=== PATIENT | female | born 1955 | race Caucasian/White ===

== ENCOUNTER 2023-03-06 07:12 | Observation (INO) ==
--- NOTE | 2023-03-03 15:27 | Anesthesiology Consultation ---
Date of Service March 03, 2023 Assessment & Plan (1) Encounter for pre-operative examination: - check BSG am DOS. - medical clearance 11/05/22: "...moderate risk..." - semaglutide instructions: Patient instructed by PAT RN to stop 7 days prior to surgery. - Outpatient joint assessment: Patient is currently scheduled for inpatient pathway. If re-evaluated and patient/surgeon requests outpatient pathway, patient is not recommended candidate for outpatient joint program from anes thesia standpoint. Chart Review Chart Review: Acceptable Risk for Surgery and Patient NOT seen in Pre Admission Testing History Surgery Operation Date: 03/06/23 11:15 Proposed Procedures p Left Total Hip Arthroplasty Anterior Approach - Elpidio Villagomez MD Height/Weight Height: 5 ft Weight: 97.522 kg Allergies Allergy/AdvReac Type Severity Reaction Status Date / Time latex Allergy Unknown Rash Verified 03/03/23 09:09 Medications Home Medications Medication Instructions Recorded Confirmed Last Taken albuterol sulfate 90 mcg/actuation 2 puff inhalation QID PRN sob 03/03/23 03/03/23 Unknown aerosol inhaler atorvastatin 20 mg tablet 20 mg PO QAM 03/03/23 03/03/23 Unknown cholecalciferol (vitamin D3) 125 125 mcg PO QAM 03/03/23 03/03/23 Unknown mcg (5,000 unit) tablet (Vitamin D3) fluticasone 100 mcg-salmeterol 50 1 inh inhalation BID 03/03/23 03/03/23 Unknown mcg/dose blistr powdr for inhalation ipratropium 0.5 mg-albuterol 3 mg 3 ml inhalation Q8H PRN sob 03/03/23 03/03/23 Unknown (2.5 mg base)/3 mL nebulization soln levetiracetam 750 mg tablet 750 mg PO BID 03/03/23 03/03/23 Unknown (Keppra) levothyroxine 100 mcg tablet 100 mcg PO QAM 03/03/23 03/03/23 Unknown (Synthroid) losartan 100 1 tab PO QAM 03/03/23 03/03/23 Unknown mg-hydrochlorothiazide 25 mg tablet metformin 500 mg tablet 500 mg PO BID 03/03/23 03/03/23 Unknown multivitamin 1 tab PO QAM 03/03/23 03/03/23 Unknown semaglutide 2 mg/dose (8 mg/3 mL) 2 mg subcut WK 03/03/23 03/03/23 Unknown subcutaneous pen injector (Ozempic) sertraline 50 mg tablet 50 mg PO QAM 03/03/23 03/03/23 Unknown Past Medical History Medical History (Updated 03/03/23 @ 15:23 by Saida Ji PA-C) Anxiety and depression Arthritis of spine Asthma controlled w/ daily inhaler use Chronic back pain Diabetes NIDDM Dyslipidemia History of blood transfusion > 35 yrs ago History of brain tumor 2014 History of COVID-2021- no hosp; resolved 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 History of seizure grand mal seizure- 2014- prior to finding tumor- no seizures since surgery HTN (hypertension) Hypothyroidism Past Family History Family History Other No family history of adverse response to anesthesia Past Surgical History Surgical History History of bilateral knee replacement History of hip replacement Hx of brain surgery 2014- tumor removal- [facility] [place] Hx of cardiac catheterization summer 2022-no stents- [facility] [place]- follows w/ [facility] cardio Hx of section Hx of colonoscopy Hx of dilation and curettage x 2 Social History Smoking Status: Never smoker Do You Dip or Chew Tobacco: No Hx Alcohol Use: No Hx Substance Use: No substance use type: does not use Testing Laboratory Results 02/27/23 WBC: 7.8 H/H: 12/ PLATELETS: 352,000 SODIUM: 138 POTASSIUM: 4 CHLORIDE: 102 CO2: 27 BUN: 15 CREATININE: 0.7 GLUCOSE: 96 PT: 12.7 INR: 1 A1c: 5.9% UA: clear, negative Electrocardiogram Date: 10/23/22 NSR, rate 80 bpm Low voltage QRS Chest X-Ray Date: 10/23/22 No acute process. Cardiac Catheterization Date: 08/21/21 Left main: mild diffuse atherosclerosis LAD: mild diffuse atherosclerosis LCx: mild diffuse atherosclerosis RCA: mild diffuse atherosclerosis Mild nonobstructive epicardial CAD Significantly elevated LV end diastolic pressure 23-26 mmHg
--- NOTE | 2023-03-04 16:01 | History & Physical Report ---
Date of Service March 04, 2023 Assessment & Plan (1) Degenerative joint disease of left hip: Plan: Patient will be admitted for elective left total hip replacement overnight stay and then most likely discharge to home with home health using [facility] (2) BMI 40.0-44.9, adult: History of Present Illness Chief Complaint: Patient states Left hip pain Primary Care Provider: Fred Sanford MD Patient is an obese 67-year-old female with a greater than 2-year history of bilateral hip osteoarthritis and hip pain. She had had successful right total hip replacement performed October 2022 and is doing well. She now has increased left hip and groin pain. She has limited standing and walking tolerance and has a cane for all activities of daily living. She has radiographic evidence of advanced arthritis and is admitted for elective hip replacement surgery Allergies Allergy/AdvReac Type Severity Reaction Status Date / Time latex Allergy Unknown Rash Verified 03/03/23 09:09 Home Medications Medication Instructions Recorded Confirmed Type albuterol sulfate 90 mcg/actuation 2 puff inhalation QID PRN sob 03/03/23 03/03/23 History aerosol inhaler atorvastatin 20 mg tablet 20 mg PO QAM 03/03/23 03/03/23 History cholecalciferol (vitamin D3) 125 125 mcg PO QAM 03/03/23 03/03/23 History mcg (5,000 unit) tablet (Vitamin D3) fluticasone 100 mcg-salmeterol 50 1 inh inhalation BID 03/03/23 03/03/23 History mcg/dose blistr powdr for inhalation ipratropium 0.5 mg-albuterol 3 mg 3 ml inhalation Q8H PRN sob 03/03/23 03/03/23 History (2.5 mg base)/3 mL nebulization soln levetiracetam 750 mg tablet 750 mg PO BID 03/03/23 03/03/23 History (Keppra) levothyroxine 100 mcg tablet 100 mcg PO QAM 03/03/23 03/03/23 History (Synthroid) losartan 100 1 tab PO QAM 03/03/23 03/03/23 History mg-hydrochlorothiazide 25 mg tablet metformin 500 mg tablet 500 mg PO BID 03/03/23 03/03/23 History multivitamin 1 tab PO QAM 03/03/23 03/03/23 History semaglutide 2 mg/dose (8 mg/3 mL) 2 mg subcut WK 03/03/23 03/03/23 History subcutaneous pen injector (Ozempic) sertraline 50 mg tablet 50 mg PO QAM 03/03/23 03/03/23 History Past Med/Surg History Medical History History of COVID-19 2021- no hosp; resolved Anxiety and depression Arthritis of spine Chronic back pain Diabetes NIDDM Dyslipidemia HTN (hypertension) Hypothyroidism 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 History of seizure grand mal seizure- 2014- prior to finding tumor- no seizures since surgery History of brain tumor 2014 Asthma controlled w/ daily inhaler use History of blood transfusion > 35 yrs ago Surgical History Hx of cardiac catheterization summer 2022-no stents- [facility] [place]- follows w/ [facility] cardio Hx of brain surgery 2014- tumor removal- [facility] [place] Hx of colonoscopy Hx of section History of hip replacement History of bilateral knee replacement Hx of dilation and curettage x 2 Family History Other No family history of adverse response to anesthesia Social History Smoking Status: Never smoker Second Hand Exposure: Yes (hx - smoked); Do You Dip or Chew Tobacco: No; Tobacco Cessation Education Requested by Patient: No Hx Alcohol Use: No Hx Substance Use: No Preferred Language: Bots[place] Communication Ability: Effective Communication Ability Comment: has mild cognitive deficits Doll Wig Maker Required: No Beliefs That Will Affect Care: None Current Living Situation: Alone Other Information That Helps Us Care for You: No Feels Safe at Home: Yes Safety Concerns: Feels Safe At This Time Assistive Devices: Glasses and Nebulizer Review of Systems Review of Systems: Hip pain Physical Exam Physical Exam: Obese female who appears her stated age. HEENT: NCAT, EOMI, PERRLA Neck: Negative bruits Heart: Regular rate and rhythm no murmurs Lungs: Breath sounds clear and present in all mccray Abdomen: Obese soft nontender bowel sounds positive Extremities: Left hip is 8 mm shorter than the right passive range of motion is 5 to 80 degrees flexion -10 degrees internal rotation all which reproduces groin pain. Right hip shows well-healed scar consistent with previous surgery Neurological and vascular: Intact Results & Data Results & Data Vital Signs (Past 12 Hours) Weight 99 kg BMI 43 Blood pressure 114/72 Pulse 71
[~2023-03-06 07:12] MED LIST: ACETAMINOPHEN 500 MG TAB PO SCH; BUPIVACAINE 0.5 % 5 MG/1 ML PF 10ML VIAL ONE; CeleBREX 200 MG CAP PO SCH; FAMOTIDINE 20 MG TAB PO SCH; GABAPENTIN 300 MG CAP PO SCH; LR 500ML BOLUS, THEN 15ML/HR IV SCH; LR 60ML/HR IV SCH; METOCLOPRAMIDE HCL 10 MG TABLET PO SCH; ROPIV 0.5% 246mg, Ketorolac 30mg, EPINEPHrine 0.5mg in NSS INFIL SCH; TRANEXAMIC ACID 1,000 MG **IV Intra-op IV SCH; TRANEXAMIC ACID 1,000 MG **IV Pre-op IV SCH; ceFAZolin 2000MG 2,000 MG/15 ML SYR IV SCH; dexAMETHasone**PF** 10 MG/ML VIAL IV SCH; traMADol HCL 50 MG TABLET PO SCH
[2023-03-06] MEDS ORDERED: PROPOFOL IV EMULSION 10 MG/ML 20 ML VIAL IV ONE ×2 (07:42→09:26)
[2023-03-06] MEDS ORDERED: LIDOCAINE 2% 2 ML VIAL/AMP(20MG/ML) INFIL ONE (07:42)
[2023-03-06] MEDS ORDERED: MIDAZOLAM HCL 1 MG/ML 2ML VIAL ONE ×2 (07:42)
[2023-03-06] MEDS ORDERED: ORTHO JOINT ANESTHETIC ONE (07:45)
[2023-03-06] MEDS ORDERED: ATROPINE SULFATE 0.1 MG/ML 10ML SYR IV PRN (07:59)
[2023-03-06] MEDS ORDERED: ONDANSETRON INJ 2 MG/ML 2 ML VIAL IV PRN ×2 (07:59→13:04)
[2023-03-06] MEDS ORDERED: fentaNYL citrate PF 100 MCG/2 ML VIAL IV PRN (07:59)
[2023-03-06] MEDS ORDERED: ePHEDrine sulfate 50 MG/ML AMP IV PRN (07:59)
--- NOTE | 2023-03-06 08:25 | History & Physical Bridge Note ---
Date of Service March 06, 2023 History & Physical Bridge Note I have examined the patient, reviewed the History & Physical and in the interval since the performance of the History & Physical I have noted the following changes of clinical significance: no changes noted
[2023-03-06] MEDS ORDERED: PHENYLEPHRINE 100MCG/ML 10ML SYR IV ONE (08:58)
[2023-03-06] MEDS ORDERED: ePHEDrine sulfate 50 MG/5 ML SYR ONE (09:41)
--- NOTE | 2023-03-06 09:43 | Post Operative Brief Note ---
Immediate Post Op Note v1 Date of Surgery March 06, 2023 Pre & Post Diagnosis Operation Date: 03/06/23 10:35 Pre-Op Diagnosis: Degenerative joint disease of left hip Post-Op Diagnosis: Degenerative joint disease of left hip I identified the patient and participated in the time-out.: Yes Procedure Operation Date: 03/06/23 10:35 Actual Procedures p Left Total Hip Arthroplasty - Anterior Approach(Left) - Elpidio Villagomez MD Surgeon Elpidio Villagomez MD Patient Portal Representative Brian Wooten PAGaviotaC Estimated Blood Loss 150 Findings Consistent with Post-Op Diagnosis morbidly obese body habitus with large subcutaneous fat layer and significant degenerative changes of the hip Drains Hemovac Drain
--- NOTE | 2023-03-06 09:53 | Operative Report ---
Post Operative Report Pre & Post Diagnosis Operation Date: 03/06/23 10:35 Pre-Op Diagnosis: Degenerative joint disease of left hip Morbid obesity BMI 43 Post-Op Diagnosis: Degenerative joint disease of left hip same I identified the patient and participated in the time-out.: Yes Procedure Operation Date: 03/06/23 10:35 Actual Procedures p Left Total Hip Arthroplasty - Anterior Approach(Left) - Elpidio Villagomez MD Surgeon Elpidio Villagomez MD Reading Assistant Brian Wooten PA-C Estimated Blood Loss 150 Findings Consistent with Post-Op Diagnosis severe degenerative changes with complete loss of all weightbearing articular cartilage. Patient had a morbidly obese body habitus with a large abdominal pannus and subcutaneous fat layer which had an element of increased difficulty and increased time to the surgical procedure. Specimens Femoral head and bone and cartilage fragments Complications none Description of Procedure following satisfactory spinal anesthesia the patient was supine on the operating table. The left leg was placed in the traction device in the right leg in the well-leg herzog. Positioning was confirmed with fluoroscopy. The hip and leg were prepared with ChloraPrep and draped sterilely. A surgical timeout was performed. An anterior approach was performed in the interval between the sartorius and tensor muscles. There was a large subcutaneous fat layer which bled profusely and slow down the surgical timing. The circumflex femoral vessels were identified and coagulated. An anterior capsulotomy was performed exposing the arthritic femoral neck and head. Fluoroscopy was used to confirm femoral neck resection level which was completed and the arthritic cap was removed. The acetabular self-retaining retractor was placed. Acetabular preparation was completed with excision of labrum and some soft tissues and osteophytes. Reaming was then completed under direct vision and 46 shell was impacted into a healthy bed in a position of 35 to 40 degrees of abduction 25 degrees of anteversion confirmed with fluoroscopy. A dome screw was placed followed by the Oreo Oxinium liner. A small inferior osteophyte was removed. Local anesthetic was placed and the wound was irrigated. The femur was placed in a position of external rotation extension and adduction. Femoral canal was identified and was prepared up to a size 4. A trial reduction with a standard offset neck and a 0 neck length inner dual mobility head was performed. Fluoroscopy showed very good orientation of the components, good fit and fill of the proximal canal, and zoroastrian of leg length and offset at the level of the lesser trochanter. The hip was dislocated. The trial component removed. Local anesthetic was placed. After irrigation the stem head complex of the same size as the final implant was placed the hip was reduced with fluoroscopy showing similar findings. The wound was irrigated with 500 cc of experience irrigation. A Hemovac drain was placed deep. The tensor fascia was closed with a running suture of 0 strata fix. Following irrigation another drain was placed deep in the loose fat layer. The subcutaneous fat was closed with in layers with 0 strata fix running. The most superficial layer with 3 oh strata fix. Dermabond Prineo dressing and a negative pressure wound dressing were applied. The patient was returned to her bed in stable condition. Note: Brian ATWOOD was present and assisted throughout due to the complicated nature of this case. He help with preparation and set up an nurse first assist throughout. He assisted with hemostasis and exposure throughout the procedure. He also closed the fascial subcutaneous and skin layers and applied the postop dressing. I attest to the content of the Intraoperative Record and any orders documented therein. Any exceptions are noted below.
[2023-03-06] MEDS ORDERED: KETOROLAC 30 MG/ML VIAL ONE (10:01)
--- NOTE | 2023-03-06 12:31 | Fluoroscopy Report ---
INTRAOPERATIVE RADIOGRAPH CLINICAL HISTORY: Left hip arthroplasty. Fluoro time: 13 seconds Ka,r: 2.04 mGy FINDINGS: A single spot fluoroscopic view of the left hip is presented. A bipolar left hip arthroplas ty is in near anatomic alignment. A single cortical lag screw transfixes the acetabular cup. There is no evidence of acute fracture on this fluoroscopic view. IMPRESSION: Intraoperative image from a left hip arthroplasty procedure as above. Electronically signed by: Abhishek Peterson M.D. 03/06/2023 12:30 PM
[2023-03-06] MEDS ORDERED: ALBUT/IPRATROP 3MG/0.5MG NEB 3 ML VIAL INH PRN (13:04)
[2023-03-06] MEDS ORDERED: METOCLOPRAMIDE HCL INJ 5 MG/ML 2 ML VIAL IV PRN (13:04)
[2023-03-06] MEDS ORDERED: ALBUTEROL HFA 8 GM INHALER INH PRN (13:04)
[2023-03-06] MEDS ORDERED: MAGNESIUM HYDROXIDE SUSP 30 ML UDC PO PRN (13:04)
[2023-03-06] MEDS ORDERED: bisacodyL 10 MG SUPP PR PRN (13:04)
[2023-03-06] MEDS ORDERED: NALOXONE HCL 0.4 MG/1 ML VIAL/CARP IV PRN (13:04)
[2023-03-06] MEDS ORDERED: PHARMACY GLYCEMIC MGMT CONSULT PRN (13:04)
[2023-03-06] MEDS: SODIUM CHLORIDE 0.9% 1,000 ML IV SCH ×2 (13:17→22:14)
[2023-03-06] MEDS ORDERED: GLUCAGON FOR INJ 1 MG VIAL IM PRN (14:00)
[2023-03-06] MEDS ORDERED: CARBOHYDRATES FOR HYPOGLYCEMIA PO PRN (14:00)
[2023-03-06] MEDS ORDERED: GLUCOSE 40% GEL 15 GM TUBE PO PRN (14:00)
[2023-03-06] MEDS ORDERED: DEXTROSE 50% 50 ML SYRINGE IV PRN (14:00)
[2023-03-06] MEDS ORDERED: GLUCOSE 10 TAB/TUBE PO PRN (14:00)
--- NOTE | 2023-03-06 14:33 | Pharmacy Report ---
Pharmacy Glycemic Short Note 2 - Date of Service March 06, 2023 - Glycemic Short BSG Results (Last 24 hours): 03/06/23 03/06/23 08:28 11:02 POC Glucose 95 112 H OUTPATIENT ANTIDIABETIC REGIMEN: * Metformin 500 mg PO BID * Ozempic SC ?? HbA1c: ___ ASSESSMENT: * 67 y/o F admitted for L total hip arthroplasty. Patient with history of Type 2 diabetes managed on oral Metformin at home. Not clear if she is still on Ozempic. * Will hold oral Metformin and utilize basal/bolus insulins for glycemic control for now. * Patient received IV Dexamethasone 10 mg preop today. Expected BSGs to rise later today due to steroid. * Basal insulin dose scale ordered for dinner based on BSG. * Novolog initiated based on adjusted body wt and stress of 3. * Will add overnight checks. PLAN FOR INPATIENT GLYCEMIC CONTROL: * Hold outpatient oral diabetes medications * Basal insulin * Lantus 0-10 units SQ based on BSG at dinner * Bolus insulin * NovoLog per scale ACHS or Q6hrs while NPO and 0200 check * Goal Range: Low 110 mg/dL - High 140 mg/dL * Correction Factor: 25 mg/dL/unit * Nutritional / Prandial insulin per carb ratio of 1 unit per 8 grams CHO consumed
--- NOTE | 2023-03-06 14:37 | Anesthesiology Progress Note ---
Date of Service March 06, 2023 Anesthesia Post Procedure Vital Signs Vital Signs: Temp Pulse Pulse Pulse Resp BP Pulse Ox 03/06/23 13:49 36.4 C L 68 16 115/70 93 03/06/23 13:24 36.6 C 66 16 114/72 98 03/06/23 13:12 36.5 C 63 16 118/85 95 03/06/23 12:35 66 18 115/75 96 03/06/23 12:25 36.4 C L 70 14 118/67 96 03/06/23 12:15 58 L 18 110/64 94 03/06/23 12:05 65 16 106/70 96 03/06/23 11:55 60 14 116/63 94 03/06/23 11:45 66 18 122/67 96 03/06/23 11:35 64 16 133/56 L 98 03/06/23 11:25 56 L 16 110/61 95 03/06/23 11:15 58 L 14 117/57 L 97 03/06/23 11:05 62 16 104/61 94 03/06/23 10:55 59 L 14 111/52 L 95 03/06/23 10:45 58 L 16 107/57 L 93 03/06/23 10:35 61 14 115/54 L 94 03/06/23 10:25 60 18 100/64 99 03/06/23 10:17 36.1 C L 65 16 106/56 L 98 03/06/23 07:43 36.4 C L 69 69 20 98 03/06/23 07:41 36.4 C L 69 20 123/73 98 O2 Del Method 03/06/23 13:49 Room Air 03/06/23 13:24 Room Air 03/06/23 13:12 Room Air 03/06/23 12:35 Room Air 03/06/23 12:25 Room Air 03/06/23 12:15 Room Air 03/06/23 12:05 Room Air 03/06/23 11:55 Room Air 03/06/23 11:45 Room Air 03/06/23 11:35 Room Air 03/06/23 11:25 Room Air 03/06/23 11:15 Room Air 03/06/23 11:05 Room Air 03/06/23 10:55 Room Air 03/06/23 10:45 Room Air 03/06/23 10:35 Room Air 03/06/23 10:25 Room Air 03/06/23 10:17 Room Air 03/06/23 07:43 Room Air 03/06/23 07:41 Room Air Transfer of Care Handoff Completed per policy Notes Mental Status: alert / awake / arousable and participated in evaluation Patient Amnestic to Procedure: Yes Nausea / Vomiting: adequately controlled Pain: adequately controlled Airway Patency, RR, SpO2: stable & adequate BP & HR: stable & adequate Hydration State: stable & adequate Neuraxial Anesthesia: was administered and sensory block is resolving Anesthetic Complications: no major complications apparent and Pt Satisfied with anesthetic care
[2023-03-06] MEDS ORDERED: LANTUS PER UNIT CHARGE SC SCH (16:30)
[2023-03-06] MEDS: INSULIN ASPART PER UNIT CHARGE SC SCH ×2 (17:18→21:00)
[2023-03-06] MEDS: ceFAZolin 2000MG 2,000 MG/15 ML SYR IV SCH (17:19)
[2023-03-06] MEDS: traMADol HCL 50 MG TABLET PO PRN ×2 (18:12→22:14)
[2023-03-06] MEDS ORDERED: SENNA 8.6 MG TAB PO SCH (21:00)
[2023-03-06] MEDS ORDERED: metFORMIN HCL 500 MG TAB PO SCH (21:00)
[2023-03-06] MEDS: CeleBREX 200 MG CAP PO SCH (21:08)
[2023-03-06] MEDS: levETIRAcetam 250 MG TAB PO SCH (21:08)
[2023-03-06] MEDS: ASPIRIN 81 MG ECTAB PO SCH (21:08)
[2023-03-06] MEDS: DOCUSATE SODIUM 100 MG CAP PO SCH (21:08)
[2023-03-07] MEDS: ceFAZolin 2000MG 2,000 MG/15 ML SYR IV SCH (00:21)
[2023-03-07] MEDS ORDERED: INSULIN ASPART PER UNIT CHARGE SC SCH (02:00)
[2023-03-07] MEDS: traMADol HCL 50 MG TABLET PO PRN ×3 (02:26→11:52)
[2023-03-07] MEDS ORDERED: LEVOTHYROXINE SODIUM 100 MCG TABLET PO SCH (06:30)
[2023-03-07 06:47] LABS: Basophils # (auto) 0.03 K/uL (0.00-0.20); Basophils % (auto) 0.2 %; Eosinophils # (auto) 0.05 K/uL (0.00-0.50); Eosinophils % (auto) 0.4 %; Hematocrit (blood only) 28.8 % (37.0-47.0); Hemoglobin 9.4 g/dl (12.0-16.0); Immature Granulocytes # (auto) 0.05 K/uL (0.01-0.20); Immature Granulocytes % (auto) 0.4 %; Lymphocytes # (auto) 2.82 K/uL (1.20-3.40); Lymphocytes % (auto) 22.4 %; Mean Corpuscular Hemoglobin 29.1 pg (25.0-34.0); Mean Corpuscular Hgb Conc 32.6 g/dL (32.0-36.0); Mean Corpuscular Volume 89.2 fL (80.0-100.0); Mean Platelet Volume 11.8 fL (9.4-12.4); Monocytes # (auto) 0.86 K/uL (0.11-0.59); Monocytes % (auto) 6.8 %; Neutrophils % (auto) 69.8 %; Platelet Count 227 K/uL (130-400); RDW Coefficient of Variation 12.6 % (11.5-14.5); RDW Standard Deviation 40.9 fL (36.4-46.3); Red Blood Count 3.23 M/uL (4.20-5.40); White Blood Count 12.61 K/ul (4.8-10.8)
[2023-03-07 07:00] LABS: BUN Creatinine Ratio 23.6 (10-20); Calcium 8.8 mg/dl (8.6-10.3); Creatinine Clr Calc Pharmacy 79.8 ml/min; Est GFR (African American) 101.1 ml/min; Est GFR (Non-African American) 87.3 ml/min; Potassium 3.6 mmol/L (3.5-5.1)
--- NOTE | 2023-03-07 07:02 | Orthopedic Progress Note ---
Date of Service March 07, 2023 Assessment & Plan (1) Degenerative joint disease of left hip: Plan: Postop day 1 status post left total hip arthroplasty PT/OT protocols. Weightbearing as tolerated. DVT prophylaxis-aspirin p.o. twice daily, SCDs. Pain management as written. DC planning-patient is planning for home health services upon discharge. Plan for discharge to home today after morning PT/OT protocols. (2) BMI 40.0-44.9, adult: Admission and Anticipated Discharge Date Admission Date: March 06, 2023 Subjective Postop day 1 status post left total hip arthroplasty Patient sleeping upon arrival. Easily awoken. Patient states she is feeling well this morning. She states that she was up ambulating the hallways last n ight and doing well. Her pain is controlled. She denies any shortness of breath, chest pain, lightheadedness. She is hoping to go home today Physical Exam Physical Exam: Dressings clean, dry, and intact. Thigh with some mild swelling consistent with surgery. Calves are soft nontender. Neurovascular intact. Toes are mobile. Leg lengths appear equal. Hemovac drainage was 100 from the previous shift Results & Data Vital Signs (Past 12 Hours) Vital Signs Temp Pulse Pulse Resp BP Pulse Ox O2 Del Method 03/07/23 04:00 36.6 C 89 16 103/64 93 Room Air 03/07/23 00:23 36.6 C 65 18 105/64 96 Room Air 03/06/23 19:33 36.6 C 74 18 102/62 97 Room Air Laboratory Results Laboratory Results WBC 12.61 K/ul (4.8-10.8) H 03/07/23 05:47 RBC 3.23 M/uL (4.20-5.40) L 03/07/23 05:47 Hgb 9.4 g/dl (12.0-16.0) L 03/07/23 05:47 Hct 28.8 % (37.0-47.0) L 03/07/23 05:47 MCV 89.2 fL (80.0-100.0) 03/07/23 05:47 MCH 29.1 pg (25.0-34.0) 03/07/23 05:47 MCHC 32.6 g/dL (32.0-36.0) 03/07/23 05:47 RDW Std Deviation 40.9 fL (36.4-46.3) 03/07/23 05:47 RDW Coeff of Alex 12.6 % (11.5-14.5) 03/07/23 05:47 Plt Count 227 K/uL (130-400) 03/07/23 05:47 MPV 11.8 fL (9.4-12.4) 03/07/23 05:47 Immature Gran % (Auto) 0.4 % 03/07/23 05:47 Neut % (Auto) 69.8 % 03/07/23 05:47 Lymph % (Auto) 22.4 % 03/07/23 05:47 [place] % (Auto) 6.8 % 03/07/23 05:47 Eos % (Auto) 0.4 % 03/07/23 05:47 Baso % (Auto) 0.2 % 03/07/23 05:47 Neut # (Auto) 8.80 K/uL (1.40-6.50) H 03/07/23 05:47 Lymph # (Auto) 2.82 K/uL (1.20-3.40) 03/07/23 05:47 [place] # (Auto) 0.86 K/uL (0.11-0.59) H 03/07/23 05:47 Eos # (Auto) 0.05 K/uL (0.00-0.50) 03/07/23 05:47 Baso # (Auto) 0.03 K/uL (0.00-0.20) 03/07/23 05:47 Immature Gran # (Auto) 0.05 K/uL (0.01-0.20) 03/07/23 05:47 Sodium 140 mmol/L (136-145) 03/07/23 05:47 Potassium 3.6 mmol/L (3.5-5.1) 03/07/23 05:47 Chloride 107 mmol/L (98-107) 03/07/23 05:47 Carbon Dioxide 28 mmol/L (21-32) 03/07/23 05:47 Anion Gap 5 (3-11) 03/07/23 05:47 BUN 17 mg/dl (6-23) 03/07/23 05:47 Creatinine 0.72 mg/dl (0.6-1.2) 03/07/23 05:47 Est Cr Clr Drug Dosing 79.8 ml/min 03/07/23 05:47 Est GFR ( Amer) 101.1 ml/min 03/07/23 05:47 Est GFR (Non-Af Amer) 87.3 ml/min 03/07/23 05:47 BUN/Creatinine Ratio 23.6 (10-20) H 03/07/23 05:47 Glucose 103 mg/dl (70-99(Fasting)) H 03/07/23 05:47 POC Glucose 104 mg/dl (70-99) H 03/07/23 02:15 Calcium 8.8 mg/dl (8.6-10.3) 03/07/23 05:47 Blood Type O Negative 03/06/23 07:27 Antibody Screen NEGATIVE 03/06/23 07:27 Impressions Hip X-Ray 03/06/23 00:00 INTRAOPERATIVE RADIOGRAPH CLINICAL HISTORY: Left hip arthroplasty. Fluoro time: 13 seconds Ka,r: 2.04 mGy FINDINGS: A single spot fluoroscopic view of the left hip is presented. A bipolar left hip arthroplasty is in near anatomic alignment. A single cortical lag screw transfixes the acetabular cup. There is no evidence of acute fracture on this fluoroscopic view. IMPRESSION: Intraoperative image from a left hip arthroplasty procedure as above. Electronically signed by: Abhishek Peterson M.D. 03/06/2023 12:30 PM
[2023-03-07] MEDS: DOCUSATE SODIUM 100 MG CAP PO SCH (07:32)
[2023-03-07] MEDS: CeleBREX 200 MG CAP PO SCH (07:33)
[2023-03-07] MEDS: levETIRAcetam 250 MG TAB PO SCH (07:33)
[2023-03-07] MEDS: ASPIRIN 81 MG ECTAB PO SCH (07:33)
[2023-03-07 07:36] LABS: Estimated Average Glucose 114 mg/dl; Hemoglobin A1C 5.6 % (4.5-5.6)
[2023-03-07] MEDS: INSULIN ASPART PER UNIT CHARGE SC SCH (08:14)
[2023-03-07] MEDS ORDERED: LOSARTAN/HCTZ 50/12.5MG TAB PO SCH (09:00)
[2023-03-07] MEDS ORDERED: SERTRALINE HCL 50 MG TABLET PO SCH (09:00)
[2023-03-07] MEDS ORDERED: FLUTICASONE/VILANTEROL 100/25MCG 14 PUFFS/INHALER INH SCH (09:00)
[2023-03-07] MEDS ORDERED: CHOLECALCIFEROL 5,000 UNITS 125 MCG TAB PO SCH (09:00)
[2023-03-07] MEDS ORDERED: MULTIVITAMIN TAB PO SCH (09:00)
[2023-03-07] MEDS ORDERED: metFORMIN HCL 500 MG TAB PO SCH (17:00)
--- NOTE | 2023-03-10 12:49 | Discharge Summary ---
Date of Service March 10, 2023 Admission HPI Per Admitting Provider Patient is an obese 67-year-old female with a greater than 2-year history of bilateral hip osteoarthritis and hip pain. She had had successful right total hip replacement performed October 2022 and is doing well. She now has increased left hip and groin pain. She has limited standing and walking tolerance and has a cane for all activities of daily living. She has radiographic evidence of advanced arthritis and is admitted for elective hip replacement surgery Admission Exam Per Admitting Provider Physical Exam: Obese female who appears her stated age. HEENT: NCAT, EOMI, PERRLA Neck: Negative bruits Heart: Regular rate and rhythm no murmurs Lungs: Breath sounds clear and present in all mccray Abdomen: Obese soft nontender bowel sounds positive Extremities: Left hip is 8 mm shorter than the right passive range of motion is 5 to 80 degrees flexion -10 degrees internal rotation all which reproduces groin pain. Right hip shows well-healed scar consistent with previous surgery Neurological and vascular: Intact Principal Diagnosis Left Hip Djd Discharge Data Allergies Allergy/AdvReac Type Severity Reaction Status Date / Time latex Allergy Unknown Rash Verified 03/03/23 09:09 Procedures Performed Operation Date: 03/06/23 10:35 Actual Procedures p Left Total Hip Arthroplasty - Anterior Approach(Left) - Elpidio Villagomez MD Ordered Studies 03/06/23 FL hip LT 1V Routine Hospital Course (1) Degenerative joint disease of left hip: Patient: AZEEM JACOBS Admit Date: 03/06/23 MR#: [id number] Att Phy: Elpidio Villagomez MD Acct ID: [id number] [facility] Phy: Fred Sanford MD Date: 1955 [facility] Phy: Age: 67 Location: 3E Sex: F Room/Bed: E312-1 cc: ~ *NOTICE TO RECEIVING CONSTITUTION PARTY/AGENCY This information is strictly Confidential and protected under [place] law. [place] law prohibits you from making any further disclosure of this information unless further disclosure is expressly permitted by the written consent of the person to whom it pertains or is authorized by law. A general authorization for the release of medical or other information is not sufficient for this purpose. Hospital accepts no responsibility if the information is made available to any other person, INCLUDING THE PATIENT. Date of Service March 07, 2023 Assessment & Plan (1) Degenerative joint disease of left hip: Plan: Postop day 1 status post left total hip arthroplasty PT/OT protocols. Weightbearing as tolerated. DVT prophylaxis-aspirin p.o. twice daily, SCDs. Pain management as written. DC planning-patient is planning for home health services upon discharge. Plan for discharge to home today after morning PT/OT protocols. (2) BMI 40.0-44.9, adult: Admission and Anticipated Discharge Date Admission Date: March 06, 2023 Subjective Postop day 1 status post left total hip arthroplasty Patient sleeping upon arrival. Easily awoken. Patient states she is feeling well this morning. She states that she was up ambulating the hallways last night and doing well. Her pain is controlled. She denies any shortness of breath, chest pain, lightheadedness. She is hoping to go home today Physical Exam Physical Exam: Dressings clean, dry, and intact. Thigh with some mild swelling consistent with surgery. Calves are soft nontender. Neurovascular intact. Toes are mobile. Leg lengths appear equal. Hemovac drainage was 100 from the previous shift Results & Data Vital Signs (Past 12 Hours) Vital Signs Temp Pulse Pulse Resp BP Pulse Ox O2 Del Method 03/07/23 04:00 36.6 C 89 16 103/64 93 Room Air 03/07/23 00:23 36.6 C 65 18 105/64 96 Room Air 03/06/23 19:33 36.6 C 74 18 102/62 97 Room Air Laboratory Results Laboratory Results WBC 12.61 K/ul (4.8-10.8) H 03/07/23 05:47 RBC 3.23 M/uL (4.20-5.40) L 03/07/23 05:47 Hgb 9.4 g/dl (12.0-16.0) L 03/07/23 05:47 Hct 28.8 % (37.0-47.0) L 03/07/23 05:47 MCV 89.2 fL (80.0-100.0) 03/07/23 05:47 MCH 29.1 pg (25.0-34.0) 03/07/23 05:47 MCHC 32.6 g/dL (32.0-36.0) 03/07/23 05:47 RDW Std Deviation 40.9 fL (36.4-46.3) 03/07/23 05:47 RDW Coeff of Alex 12.6 % (11.5-14.5) 03/07/23 05:47 Plt Count 227 K/uL (130-400) 03/07/23 05:47 MPV 11.8 fL (9.4-12.4) 03/07/23 05:47 Immature Gran % (Auto) 0.4 % 03/07/23 05:47 Neut % (Auto) 69.8 % 03/07/23 05:47 Lymph % (Auto) 22.4 % 03/07/23 05:47 Campbell % (Auto) 6.8 % 03/07/23 05:47 Eos % (Auto) 0.4 % 03/07/23 05:47 Baso % (Auto) 0.2 % 03/07/23 05:47 Neut # (Auto) 8.80 K/uL (1.40-6.50) H 03/07/23 05:47 Lymph # (Auto) 2.82 K/uL (1.20-3.40) 03/07/23 05:47 Campbell # (Auto) 0.86 K/uL (0.11-0.59) H 03/07/23 05:47 Eos # (Auto) 0.05 K/uL (0.00-0.50) 03/07/23 05:47 Baso # (Auto) 0.03 K/uL (0.00-0.20) 03/07/23 05:47 Immature Gran # (Auto) 0.05 K/uL (0.01-0.20) 03/07/23 05:47 Sodium 140 mmol/L (136-145) 03/07/23 05:47 Potassium 3.6 mmol/L (3.5-5.1) 03/07/23 05:47 Chloride 107 mmol/L (98-107) 03/07/23 05:47 Carbon Dioxide 28 mmol/L (21-32) 03/07/23 05:47 Anion Gap 5 (3-11) 03/07/23 05:47 BUN 17 mg/dl (6-23) 03/07/23 05:47 Creatinine 0.72 mg/dl (0.6-1.2) 03/07/23 05:47 Est Cr Clr Drug Dosing 79.8 ml/min 03/07/23 05:47 Est GFR ( Amer) 101.1 ml/min 03/07/23 05:47 Est GFR (Non-Af Amer) 87.3 ml/min 03/07/23 05:47 BUN/Creatinine Ratio 23.6 (10-20) H 03/07/23 05:47 Glucose 103 mg/dl (70-99(Fasting)) H 03/07/23 05:47 POC Glucose 104 mg/dl (70-99) H 03/07/23 02:15 Calcium 8.8 mg/dl (8.6-10.3) 03/07/23 05:47 Blood Type O Negative 03/06/23 07:27 Antibody Screen NEGATIVE 03/06/23 07:27 Impressions Hip X-Ray 03/06/23 00:00 INTRAOPERATIVE RADIOGRAPH CLINICAL HISTORY: Left hip arthroplasty. Fluoro time: 13 seconds Ka,r: 2.04 mGy FINDINGS: A single spot fluoroscopic view of the left hip is presented. A bipolar left hip arthroplasty is in near anatomic alignment. A single cortical lag screw transfixes the acetabular cup. There is no evidence of acute fracture on this fluoroscopic view. IMPRESSION: Intraoperative image from a left hip arthroplasty procedure as above. Electronically signed by: Abhishek Peterson M.D. 03/06/2023 12:30 PM Signed By: <Electronically signed by Brian Wooten PA-C> 03/07/23 0707 Created: 03/07/23 0700 (2) BMI 40.0-44.9, adult: Total Time Total Time Spent Total Time Spent (In Minutes): 5 Discharge Plan Discharge Items Patient Disposition: Home - Home Health Services Reason For Visit: POST SURGICAL CARE Discharge Diagnosis: Left Hip Djd Activity: Per Instructions section Weightbearing: Full weightbearing Non-emergency contact: Surgeon Call non-emergency contact if: you have any medication questions, your pain is not controlled, your temperature is above 101.5, your wound has increased redness and your wound has increased drainage Follow-up/Referrals: [facility] [Outside] (as per surgeon's office ) Elpidio Villagomez MD [Surgeon] - (Follow up with Dr Villagomez or his PA in 2 weeks from the day of your surgery for your first post operative visit) Fred Sanford MD [Primary Care Provider] - Diet: Carb Consistent or DM2 Addtl Attending Provider Instructions: DR. DELGADILLO POST-OP INSTRUCTIONS FOR TOTAL HIP ARTHROPLASTY PLEASE REVIEW PRIOR TO SURGERY Day of Surgery You will be admitted and meet the nursing and anesthesia team. Dr. Villagomez will see you and sign your operative side. Anesthesia will place your spinal anesthetic in the pre-op area Your surgery will be performed and last approximately 1 2 hours. Upon waking, you will notice a dressing and ice pack on your hip. You will remain in the recovery room for 1 2 hours, then be transferred to your room in the ambulatory surgical area if you are to go home the same day as your surgery or transferred to the orthopedic floor if you will be staying overnight. Most of Dr. Delgadillo total hip patients go home the same day as surgery. This depends on how well you feel. Patients generally seem to feel better in their own home environment, and the risk of exposure to bad bugs is much lower. (Your post-operative medications will be sent to your pharmacy approximately 1-2 days prior to your procedure) Day 1 post-op (if you have an overnight stay in the hospital) You will have bloodwork drawn in the morning Physical therapy will evaluate you in the morning. You will start getting out of bed and ambulating with a walker. They will instruct you on hip motion exercises. Use your cold packs as instructed. This will decrease swelling and minimize pain. player services representative will discuss your discharge plan. Discharge will generally be around 11am Day 1 post-op (all patients) You will be taking Aspirin 81mg twice for 4 weeks to decrease the risk of a blood clot. You will most likely have a drain and a JADEN (superficial wound VAC) dressing post-operatively. This will keep your incision dry as well as aid in early healing. The batteries will wear out and the VAC will lose suction around day 6 - 7 post-op. At that time, you may turn off the device and disconnect from the dressing. You must keep the dressing on until your first post- operative visit with Dr. Villagomez. If the dressing appears to be saturated, please call our office. Day 2 14 post-op You will have a home nurse visit to assess your status and remove your drain on post-op day 2. You are permitted to shower immediately with the VAC. Do not soak the dressing let the shower flow on your opposite side, and pat dry the plastic. Once the dressing has been removed, you may shower normally with the incision exposed. Do not rub the area simply let soapy water run over the incision and lightly pat dry. Therapy will begin on post-op day 3. Your therapy prescription will be sent to your home therapy company/therapist You should continue doing your home exercises Week 2 post-op and forward You will have your first post-op appointment 2 weeks after surgery which should have been scheduled for you by our office. This appointment will be to check your incision, progression of therapy and pain control. Xrays will be taken to evaluate the prosthesis. You will continue to use a cane or a walker until you feel safe enough to stop using it. You will have a 6-week post-op appointment which should have been scheduled for you by our office. Xrays will be taken to evaluate the prosthesis. You will continue to advance range of motion. By 3 to 4 months after surgery, you should have almost full range of motion and may resume most activities. You may have some pain around the hip with certain activities this is completely normal. You will be scheduled for a 1 year post-op appointment to assess your outcome (sooner if Dr. Villagomez feels necessary). Pain: The immediate post-op period after hip replacement surgery can be painful. However, the degree and frequency of the pain is generally much less than knee replacement surgery. You should take your pain medicine as you need it, especially prior to physical therapy and bedtime. Your pain will decrease and you may transition to a milder pain medicine (with less side effects, such as Tylenol) as soon as possible. It is common to have pain at night that interferes with sleep this can last for several months. Pain medicines can cause nausea and constipation do not take more than you need. You may be prescribed one or more of the following medications: 1. Celebrex this controls inflammation and makes pain medications mor effective it will be taken once or twice a day 2. Tylenol a pain medicine that can help to decrease your pain you should take 1000mg three times a day 3. Tramadol a pain medicine that can be taken every 4-6 hours (instead of Oxycodone) as needed to control your pain 4. Oxycodone a VERY strong pain medicine that can be taken every 4-6 hours (instead of Tramadol) as needed to control your pain. This medication has the most side effects and is usually not necessary for hip replacements. 5. Aspirin 81mg blood thinning medication to help minimize the risk of development of blood clots unfortunate side effects of pain medicine include nausea and constipation if you experience these issues or have any questions about your post-op medications, call [facility] at for assistance/advice on how to manage these issues Hip replacement surgery does not require a lot of aggressive physical therapy. Learning to walk safely and obeying hip precautions are most important. While in the hospital, you will be shown a series of home exercises you should perform these exercises 3 4 times daily in addition to physical therapy. After the completion of home therapy (approx.. 2 weeks), most therapy exercises can be done on your own. You should walk several times a day. Try not to be standing for more than an hour at a time during the first 4 weeks post-op as you may experience more swelling. If you develop swelling, you need to elevate your legs/feet at or above the level of your heart. You may progress from a walker to a cane to walking independently as you feel comfortable. Unless it is an emergency, YOUR ARE NOT PERMITTED TO HAVE ANY DENTAL CLEANING/WORK UNTIL 3 MONTHS AFTER SURGERY. You will be required to take an antibiotic prior to any dental cleaning or dental work in order to prevent your joint prothesis from getting infected. This medication is a one time per visit dose to be taken one hour prior to appointment. You may call our office for this prescription or your dentist may be willing to prescribe the medication. Remember to contact [facility] at if you develop any signs of infection which include increased swelling, pain, redness, drainage from incision, warmth, fever, chills or severe pain unrelieved by pain medication. If you develop any chest pain or shortness of breath, you should proceed immediately to the nearest Emergency Room. It is normal to run a low-grade fever after surgery. If your fever is consistent at 101.0 or higher, you will need to contact the office. Stand-Alone Forms: My [employer], Smoking Cessation Medications and DC Order Prescriptions: Continued multivitamin Tablet 1 tab PO QAM metformin 500 mg Tablet 500 mg PO BID atorvastatin 20 mg Tablet 20 mg PO QAM ipratropium-albuterol 0.5 mg-3 mg(2.5 mg base)/3 mL Solution For Nebulization 3 ml INHALATION Q8H PRN (Reason: sob) levothyroxine [Synthroid] 100 mcg Tablet 100 mcg PO QAM losartan-hydrochlorothiazide 100-25 mg Tablet 1 tab PO QAM levetiracetam [Keppra] 750 mg Tablet 750 mg PO BID fluticasone propion-salmeterol 100-50 mcg/dose Blister With Device 1 inh INHALATION BID albuterol sulfate 90 mcg/actuation Hfa Aerosol Inhaler 2 puff INHALATION QID PRN (Reason: sob) sertraline 50 mg Tablet 50 mg PO QAM cholecalciferol (vitamin D3) [Vitamin D3] 125 mcg (5,000 unit) Tablet 125 mcg PO QAM Ozempic 2 mg/dose (8 mg/3 mL) Pen Injector 2 mg SUBCUT WK Patient Comments: Mondays Admission Data Admit Date/Time: 03/06/23 09:48 Attending Provider: Elpidio Villagomez Admit Provider: Elpidio Villagomez Primary Care Provider: Fred Sanford Other Providers: [facility],Home [facility] Other Interventions: Discharge Summary Assessment (RN) Last Done: 03/07/23 09:42
== END 2023-03-07 13:15 | disposition home health service (06) ==
LOC: 3E 07:12 → ASU 07:12